=== PATIENT | male | born 1975 | race Caucasian/White ===

== ENCOUNTER 2022-03-12 06:25 | Day surgery (SDC) | payer OTHER ==
[2022-03-08 14:06] LABS: BASOPHILS # (AUTO) 0.1 X10'3 (0-0.2); BASOPHILS % (AUTO) 0.7 % (0-1); EOSINOPHILS # (AUTO) 0.1 X10'3 (0-0.9); EOSINOPHILS % (AUTO) 1.1 % (0-6); LYMPHOCYTES # (AUTO) 2.7 X10'3 (1.1-4.8); MEAN CORPUSCULAR HEMOGLOBIN 31.2 PG (27.0-31.0); MEAN CORPUSCULAR HGB CONC 34.9 g/dL (33.0-36.5); MEAN CORPUSCULAR VOLUME 89.4 FL (78-98); MEAN PLATELET VOLUME 9.8 FL (7.4-10.4); MONOCYTES # (AUTO) 0.6 X10'3 (0-0.9); MONOCYTES % (AUTO) 8.2 % (2-12); NEUTROPHILS # (AUTO) 4.2 X10'3 (1.8-7.7); PRE OP HEMATOCRIT 49.2 % (42.0-52.0); PRE OP HEMOGLOBIN 17.2 g/dL (14.0-17.9); PRE OP PLATELET COUNT 157 X10'3 (140-440); RED BLOOD COUNT 5.51 X10'6 (4.70-6.10)
[2022-03-08 14:28] LABS: ALBUMIN 4.3 G/DL (3.4-5.0); ALBUMIN/GLOBULIN RATIO 1.3 (1.1-1.5); ALKALINE PHOSPHATASE 68 IU/L (46-116); BLOOD UREA NITROGEN 13 MG/DL (7-18); BUN/CREATININE RATIO 13.1 (5.4-32.0); CALCIUM 9.1 MG/DL (8.5-10.1); CHLORIDE 102 MMOL/L (99-107); CREATININE 0.99 MG/DL (0.60-1.10); PRE OP ALT 78 U/L (30-65); PRE OP ANION GAP 10 (8-16); PRE OP AST 39 U/L (10-37); PRE OP BILIRUB, TOTAL 0.7 MG/DL (0.0-1.0); PRE OP GLUCOSE 100 MG/DL (70-104); PRE OP POTASSIUM 3.5 MMOL/L (3.4-5.1); PRE OP SODIUM 139 MMOL/L (135-145); TOTAL CARBON DIOXIDE 26.6 MMOL/L (24-32); TOTAL PROTEIN 7.6 G/DL (6.4-8.2); eGFR 81 ML/MIN
[2022-03-12] VITALS (13 sets, daily range): BP systolic 145–162; BP diastolic 91–117
[~2022-03-12] VITALS: Ht 180.3 cm; Wt 92.0 kg
[~2022-03-12 06:25] MED LIST: PYRI-3 PO; [UNRECOGNIZED DRUG - OTHER] PO; ceFAZolin inj. 2,000 MG in dextrose 5%-water 100 ML IV ONE; famotidine 20mg tablet PO ONE; ringers solution, lacted 1,000 ML IV SCH
[2022-03-12] MEDS ORDERED: LIDOcaine 1% 30ml preserv. free vial ONE (06:47)
[2022-03-12] MEDS ORDERED: BUPIVAcaine 0.5% inj/PF 30 ML ONE (06:47)
[2022-03-12] MEDS ORDERED: LIDOcaine 1% (10mg/ml) 2ml vial ONE (07:31)
[2022-03-12] MEDS ORDERED: fentaNYL/PF 50MCG/1 ML 2ML syringe ONE ×2 (08:15→08:42)
[2022-03-12] MEDS ORDERED: midazolam 1 mg/ML 2ml injection ONE (08:15)
[2022-03-12] MEDS ORDERED: glycopyrrolate 0.2mg/ml inj ONE (08:30)
[2022-03-12] MEDS ORDERED: acetaminophen 1000 MG/100ml vial IV ONE (08:30)
[2022-03-12] MEDS ORDERED: sevoflurane 250ml liquid IH ONE (08:30)
[2022-03-12] MEDS ORDERED: neostigmine methylsulfate 1 MG/ML 10ml vial ONE (08:30)
[2022-03-12] MEDS ORDERED: BUPIVAcaine 0.5% inj/PF 30 ml vial IJ ONE (09:04)
[2022-03-12] MEDS ORDERED: rocuronium 10mg/ml inj IV ONE (09:17)
[2022-03-12] MEDS ORDERED: ondansetron/PF 4mg/2ml inj ONE (09:17)
[2022-03-12] MEDS ORDERED: LIDOcaine 2% (20mg/ml) 5ml vial ONE (09:17)
[2022-03-12] MEDS ORDERED: propofol inj 20 ML IV ONE (09:17)
[2022-03-12] MEDS ORDERED: metoprolol tartrate 1mg/ml inj IV ONE (09:17)
[2022-03-12] MEDS ORDERED: dexamethasone sod phosphate 4mg/ml inj. ONE (09:17)
[2022-03-12] MEDS ORDERED: proCHLORperazine 10 MG/2 ml inj IV PRN (09:20)
[2022-03-12] MEDS ORDERED: meperidine/PF 25mg/ml syringe IV PRN ×3 (09:20)
[2022-03-12] MEDS ORDERED: ondansetron/PF 4mg/2ml inj IV PRN (09:20)
[2022-03-12] MEDS ORDERED: morphine 4 MG/ML inj SYRINge IV PRN (09:20)
[2022-03-12] MEDS ORDERED: morphine 2 MG/ML inj. syringe IV PRN (09:20)
[2022-03-12] MEDS ORDERED: ringers solution, lacted 1,000 ML IV SCH (09:20)
[2022-03-12] MEDS ORDERED: sugammadex 200mg/2ml injection IV ONE (09:55)
--- NOTE | 2022-03-12 09:58 | NUR ---
Received from OR via [facility], accompanied by Anesthesiologist and report given by Anesthesiologist AND ADVANCED MANUFACTURING VICE PRESIDENT. PT DROWSY, DENIES PAIN, ABDOMEN W/3 LAP SITES W/BANDAIDS CDI. Addendum: 03/12/22 at 1018 by Kim Gonzalez RN Amended: Links added.
[2022-03-12] MEDS ORDERED: HYDROcodone/acetaminophen 5mg/325mg tablet PO PRN (10:20)
--- NOTE | 2022-03-12 12:08 | NUR ---
PT UP AND STABLE W/AMBULATION, VOIDED LARGE AMT OF URINE. PT STATES PAIN IS TOLERABLE AND WILL WAIT UNTIL HE IS HOME BEFORE TAKING ANY PAIN MEDICATION. D/C INSTRUCTIONS GIVEN AND GONE OVER W/PT WHO VERBALIZED UNDERSTANDING. PT D/CD TO HOME VIA W/C TO PRIVATE VEHICLE W/O INCIDENT. Addendum: 03/12/22 at 1222 by Kim Gonzalez RN Amended: Links added.
== END 2022-03-12 12:08 | disposition home or self-care (01) ==
LOC: PAS 06:25
PROVIDERS: ATTEND Surgery
DX: K40.20 Bilateral inguinal hernia, without obstruction or gangrene, not specified as recurrent (principal); I10 Essential (primary) hypertension; Z72.89 Other problems related to lifestyle; Z82.49 Family history of ischemic heart disease and other diseases of the circulatory system; Z87.891 Personal history of nicotine dependence; Z79.899 Other long term (current) drug therapy; Z98.890 Other specified postprocedural states
CPT/HCPCS: 36415; 49650; 80053; 82948; 85025; 93005; C1781; J0131; J0690; J1100; J2250; J2405; J2704; J2710; J3010; J3490; J7030; J7060; J7120; S0020; S2900; Z7506; Z7508; Z7512; A4215; A4618

== ENCOUNTER 2022-06-20 07:06 | Day surgery (SDC) | payer OTHER ==
[2022-06-19 13:11] LABS: BASOPHILS % (AUTO) 0.3 % (0-1); EOSINOPHILS % (AUTO) 0.6 % (0-6); LYMPHOCYTES # (AUTO) 2.2 X10'3 (1.1-4.8); LYMPHOCYTES % (AUTO) 29.3 % (21-51); MEAN CORPUSCULAR HEMOGLOBIN 30.7 PG (27.0-31.0); MEAN CORPUSCULAR HGB CONC 33.9 g/dL (33.0-36.5); MEAN CORPUSCULAR VOLUME 90.5 FL (78-98); MEAN PLATELET VOLUME 9.7 FL (7.4-10.4); MONOCYTES # (AUTO) 0.6 X10'3 (0-0.9); MONOCYTES % (AUTO) 7.7 % (2-12); NEUTROPHILS # (AUTO) 4.6 X10'3 (1.8-7.7); NEUTROPHILS % (AUTO) 62.1 % (42-75); PRE OP HEMATOCRIT 48.8 % (42.0-52.0); PRE OP HEMOGLOBIN 16.6 g/dL (14.0-17.9); PRE OP PLATELET COUNT 164 X10'3 (140-440); RED BLOOD COUNT 5.39 X10'6 (4.70-6.10); RED CELL DISTRIBUTION WIDTH 12.9 % (11.5-14.5)
[2022-06-19 13:29] LABS: ALBUMIN 4.5 G/DL (3.4-5.0); ALBUMIN/GLOBULIN RATIO 1.4 (1.1-1.5); ALKALINE PHOSPHATASE 81 IU/L (46-116); BLOOD UREA NITROGEN 13 MG/DL (7-18); BUN/CREATININE RATIO 13.8 (5.4-32.0); CALCIUM 9.9 MG/DL (8.5-10.1); CHLORIDE 103 MMOL/L (99-107); CREATININE 0.94 MG/DL (0.60-1.10); PRE OP ALT 72 U/L (30-65); PRE OP ANION GAP 9 (8-16); PRE OP AST 33 U/L (10-37); PRE OP BILIRUB, TOTAL 0.6 MG/DL (0.0-1.0); PRE OP GLUCOSE 102 MG/DL (70-104); PRE OP SODIUM 139 MMOL/L (135-145); TOTAL CARBON DIOXIDE 27.5 MMOL/L (24-32); TOTAL PROTEIN 7.7 G/DL (6.4-8.2); eGFR 86 ML/MIN
[~2022-06-20] VITALS: Ht 180.3 cm; Wt 93.0 kg
[2022-06-20] VITALS (15 sets, daily range): BP systolic 135–195; BP diastolic 85–116
[~2022-06-20 07:06] MED LIST changes: -PYRI-3 PO; +VITA-268 PO; +[UNRECOGNIZED DRUG - OTHER] PO
[2022-06-20] MEDS ORDERED: morphine 4 MG/ML inj SYRINge IV PRN (08:35)
[2022-06-20] MEDS ORDERED: ondansetron/PF 4mg/2ml inj IV PRN (08:35)
[2022-06-20] MEDS ORDERED: morphine 2 MG/ML inj. syringe IV PRN (08:35)
[2022-06-20] MEDS ORDERED: fentaNYL/PF 50MCG/1 ML 2ML syringe IV PRN ×2 (08:35)
[2022-06-20] MEDS ORDERED: hydrALAZINE 20mg/ml inj. IV PRN (08:35)
[2022-06-20] MEDS ORDERED: ringers solution, lacted 1,000 ML IV SCH (08:35)
[2022-06-20] MEDS ORDERED: LIDOcaine 1% 30ml preserv. free vial ONE (09:20)
[2022-06-20] MEDS ORDERED: BUPIVAcaine 0.5% inj/PF 30 ML ONE (09:20)
[2022-06-20] MEDS ORDERED: neostigmine methylsulfate 1 MG/ML 10ml vial ONE (09:29)
[2022-06-20] MEDS ORDERED: dexamethasone sod phosphate 10mg/ml inj ONE (09:29)
[2022-06-20] MEDS ORDERED: sevoflurane 250ml liquid IH ONE (09:29)
[2022-06-20] MEDS ORDERED: MIDAZolam 1 MG/ML 5ML VIAL ONE (09:37)
[2022-06-20] MEDS ORDERED: fentaNYL /PF 50mcg/ml 5ml ampule ONE (09:37)
[2022-06-20] MEDS ORDERED: ondansetron/PF 4mg/2ml inj ONE (09:45)
[2022-06-20] MEDS ORDERED: LIDOcaine 1%/PF 5ML 10 MG/ML VIAL ONE (09:45)
[2022-06-20] MEDS ORDERED: rocuronium 10mg/ml inj IV ONE ×2 (09:45→10:10)
[2022-06-20] MEDS ORDERED: glycopyrrolate 0.2mg/ml inj ONE (09:45)
[2022-06-20] MEDS ORDERED: propofol inj 20 ML IV ONE (09:45)
[2022-06-20] MEDS ORDERED: labetalol 20mg/4ml (5mg/ml) syringe IV ONE (09:54)
[2022-06-20] MEDS ORDERED: BUPIVAcaine 0.5% inj/PF 30 ml vial IJ ONE (09:58)
[2022-06-20] MEDS ORDERED: LIDOcaine 1% 30ml preserv. free vial IJ ONE (10:06)
--- NOTE | 2022-06-20 11:14 | NUR ---
Received from OR via [facility] , accompanied by Anesthesiologist and report given by DENISE Anesthesiologist. PATIENT WAKING UP, DENIES PAIN, V/S WNL, PIV 20G RIGHT AC, BANDAID LAPS SITES CLOSED C/D/I TO ABDOMEN. Addendum: 06/20/22 at 1132 by Mamadou Martinez RN Amended: Links added.
[2022-06-20] MEDS: labetalol 20mg/4ml (5mg/ml) syringe IV PRN ×3 (12:29→12:34)
--- NOTE | 2022-06-20 12:40 | NUR ---
PERFORMED URINARY BLADDER SCANNER AND NO URINE NOTED. PATIENT TOLERATED PROCEDURE WELL. Addendum: 06/20/22 at 1300 by Mamadou Martinez RN Amended: Links added.
--- NOTE | 2022-06-20 12:59 | NUR ---
ALL DISCHARGE CRITERIA HAS BEEN MET. VSS, PAIN AT A TOLERABLE LEVEL, VOIDING AND ABLE TO SAFELY AMBULATE AND TRANSFER SELF. IV TAKEN OUT WITHOUT ANY COMPLICATIONS. ALL DISCHARGE INSTRUCTIONS COVERED WITH PATIENT AND ALL QUESTIONS ANSWERED. PATIENT TAKEN OUT VIA WHEELCHAIR WITH ALL BELONGINGS TO PERSONAL VEHICLE WHERE FAMILY DROVE PATIENT HOME. Addendum: 06/20/22 at 1309 by Mamadou Martinez RN Amended: Links added.
== END 2022-06-20 12:59 | disposition home or self-care (01) ==
LOC: PAS 07:06
PROVIDERS: ATTEND Surgery
DX: K40.91 Unilateral inguinal hernia, without obstruction or gangrene, recurrent (principal); D17.6 Benign lipomatous neoplasm of spermatic cord; I10 Essential (primary) hypertension; F10.20 Alcohol dependence, uncomplicated; Z87.891 Personal history of nicotine dependence; Z98.890 Other specified postprocedural states; Z79.899 Other long term (current) drug therapy; Z82.49 Family history of ischemic heart disease and other diseases of the circulatory system
CPT/HCPCS: 36415; 49651; 80053; 82948; 85025; C1781; J0690; J1100; J2250; J2270; J2405; J2704; J2710; J3010; J3490; J7030; J7060; J7120; S0020; S2900; Z7506; Z7508; Z7512; A4215; A4618